=== PATIENT | male | born 1985 | race Caucasian/White ===

== ENCOUNTER 2021-07-12 08:51 | Outpatient (CLI) | payer MEDICARE | END 2021-07-12 08:52 | disposition home or self-care (01) | LOC: CSHMRI 08:51 | PROVIDERS: ATTEND Nurse Practitioner Acute Care | DX: G43.009 Migraine without aura, not intractable, without status migrainosus (principal); R27.0 Ataxia, unspecified; M50.022 Cervical disc disorder at C5-C6 level with myelopathy | CPT/HCPCS: 70553; 72156 ==

== ENCOUNTER 2021-09-18 15:29 | Outpatient (CLI) | payer MEDICARE ==
[2021-09-18 23:48] LABS: SARS-CoV-2 PCR by NAA Not Detected (NotDetected)
== END 2021-09-18 15:30 | disposition home or self-care (01) ==
LOC: CSHLAB 15:29
PROVIDERS: ATTEND Internal Medicine Gastroenterology
DX: Z20.822 Contact with and (suspected) exposure to COVID-19 (principal); K21.9 Gastro-esophageal reflux disease without esophagitis
CPT/HCPCS: U0003; U0005

== ENCOUNTER 2022-01-01 13:31 | Outpatient (CLI) | payer MEDICARE | END 2022-01-01 13:32 | disposition home or self-care (01) | LOC: CSHRAD 13:31 | PROVIDERS: ATTEND Student in an Organized Health Care Education/Training Program | DX: R61 Generalized hyperhidrosis (principal) | CPT/HCPCS: 71046 ==

== ENCOUNTER 2022-06-13 13:54 | Outpatient (CLI) | payer OTHER | END 2022-06-13 13:55 | disposition home or self-care (01) | LOC: CSHCP 13:54 | PROVIDERS: ATTEND Internal Medicine | DX: J45.40 Moderate persistent asthma, uncomplicated (principal); J98.8 Other specified respiratory disorders | CPT/HCPCS: 94010; 94726; 94760 ==

== ENCOUNTER 2022-07-15 20:14 | Emergency (ER) | payer OTHER | END 2022-07-15 22:07 | disposition home or self-care (01) | LOC: CSHERS 20:14 | DX: S16.1XXA Strain of muscle, fascia and tendon at neck level, initial encounter (principal); I10 Essential (primary) hypertension; E11.9 Type 2 diabetes mellitus without complications; V49.40XA Driver injured in collision with unspecified motor vehicles in traffic accident, initial encounter; Y92.410 Unspecified street and highway as the place of occurrence of the external cause | CPT/HCPCS: 70450; 72125 ==